=== PATIENT | male | born 1960 | race Caucasian/White ===

== ENCOUNTER 2019-10-06 15:18 | Emergency (ER) | payer OTHER ==
[~2019-10-06] VITALS: Ht 185.4 cm; Wt 113.4 kg
[2019-10-06 15:46] VITALS: BP 131/81; Ht 185.4 cm; Wt 113.4 kg
== END 2019-10-06 16:30 | disposition home or self-care (01) ==
LOC: ED 15:18
DX: S89.91XA Unspecified injury of right lower leg, initial encounter (principal); X58.XXXA Exposure to other specified factors, initial encounter; Y93.89 Activity, other specified; Y92.89 Other specified places as the place of occurrence of the external cause; Y99.8 Other external cause status
CPT/HCPCS: Q0092